=== PATIENT | female | born 1990 | race Caucasian/White ===

== ENCOUNTER 2021-10-05 20:57 | Emergency (ER) | payer OTHER ==
[~2021-10-05] VITALS: Ht 154.9 cm; Wt 68.0 kg
[2021-10-05 21:06] VITALS: BP_SYST 123; BP_SYST 131; BP_DIAS 72
--- NOTE | 2021-10-05 21:10 | NUR ---
TO LOBBY A/W BED AMBULATORY Addendum: 10/05/21 at 2157 by [facility] SWABS FOR MICHELINE AND INFLUENZA, SENT TO LAB
[2021-10-05] MEDS ORDERED: IBUPROFEN 600 MG TAB ONE (21:18)
--- NOTE | 2021-10-05 21:18 | NUR ---
MEDICATED PER PROTOCOL. MOTRIN 600MG PO GIVEN
--- NOTE | 2021-10-05 21:20 | NUR ---
Primitivo kerr in [facility] - 10/05/21 at 2144 by [facility] SWABS FOR MICHELINE AND INFLUENZA SENT TO LAB
[2021-10-05 21:50] LABS: APPEARANCE,URINE CLEAR (CLEAR); BILIRUBIN,URINE NEGATIVE (NEGATIVE); BLOOD, URINE NEGATIVE (NEGATIVE); COLOR,URINE YELLOW (YELLOW); LEUKOCYTE ESTERASE ,URINE TRACE (NEGATIVE); NITRITE, URINE NEGATIVE (NEGATIVE); PH,URINE 7.5 (5.0-9.0); UGLUCOSE NEGATIVE (NEGATIVE)
[2021-10-05 21:59] LABS: RBC,URINE 0-5 /HPF (0-5); WBC,URINE 0-5 /HPF (0-5)
[2021-10-05 22:00] LABS: OTHER CASTS, URINE None Seen /LPF (None Seen)
--- NOTE | 2021-10-05 23:02 | NUR ---
PT AMBULATED TO BED #4
--- NOTE | 2021-10-05 23:02 | NUR ---
Primitivo kerr in [facility] - 10/05/21 at 2302 by CRYSTAL PT TAKEN TO BED 4
--- NOTE | 2021-10-05 23:15 | NUR ---
RECEIVED IN BED 4 WITH C/O FEVER, BODYACHES, BACK PAIN SINCE MONDAY SHE TOOK TYLENOL AT 1600HOURS.
--- NOTE | 2021-10-05 23:16 | NUR ---
X-Ray at bedside.
[2021-10-05] MEDS ORDERED: LIDOCAINE MPF 1% 5 ML ONE (23:19)
[2021-10-05] MEDS ORDERED: cefTRIAXone 1,000 MG VIAL ONE (23:19)
[2021-10-05 23:31] LABS: BASOPHILS % (AUTO) 0.3 % (0.0-2.0); HEMATOCRIT 31.1 % (36-48); HEMOGLOBIN 10.4 g/dL (12.0-16.0); LYMPHOCYTES # (AUTO) 0.8 K/uL (2.5-16.5); LYMPHOCYTES % (AUTO) 7.4 % (20.5-51.1); MEAN CORPUSCULAR HEMOGLOBIN 28 pg (27-31); MEAN CORPUSCULAR HGB CONC 33 g/dL (33-37); MEAN CORPUSCULAR VOLUME 82.5 fL (80-94); MONOCYTES # (AUTO) 1.5 K/uL (0.8-1.0); MONOCYTES % (AUTO) 13.3 % (1.7-9.3); NEUTROPHILS # (AUTO) 8.7 K/uL (1.8-7.7); PLATELET COUNT (AUTO) 234 K/uL (140-450); RED BLOOD CELL COUNT(AUTO) 3.77 MIL/uL (4.20-5.40); RED CELL DISTRIBUTION WIDTH 16.2 % (11.6-13.7)
[2021-10-05] MEDS: ACETAMINOPHEN EXTRA STRENGTH 500 MG TAB PO ONE (23:38)
[2021-10-05] MEDS: cefTRIAXone 1,000 MG in LIDOCAINE MPF 1% 2.1 ML IM ONE (23:39)
[2021-10-05 23:48] LABS: ALBUMIN 3.5 g/dL (3.4-5.0); CARBON DIOXIDE 24.9 mmol/L (21-32); CREATININE 0.8 mg/dL (0.6-1.3); TOTAL BILIRUBIN 0.4 mg/dL (0.0-1.0)
[2021-10-05 23:50] LABS: POTASSIUM 2.9 mmol/L (3.5-5.1)
[2021-10-06] MEDS ORDERED: CIPR500T4 PO (00:54)
[2021-10-06] MEDS: POTASSIUM CHLORIDE 10 MEQ TABER PO ONE (00:55)
[2021-10-06 01:28] VITALS: BP 105/64
== END 2021-10-06 01:28 | disposition home or self-care (01) ==
LOC: MED 20:57
DX: R10.32 Left lower quadrant pain (principal); Z20.822 Contact with and (suspected) exposure to COVID-19; N39.0 Urinary tract infection, site not specified; E87.6 Hypokalemia; R07.89 Other chest pain; Z79.899 Other long term (current) drug therapy
CPT/HCPCS: 36415; 71045; 80053; 81001; 81025; 84484; 85025; 87086; 87426; 87804; 93005; 96372; 99285; J0696; J2001

== ENCOUNTER 2021-12-15 10:35 | Emergency (ER) | payer OTHER ==
[~2021-12-15] VITALS: Ht 152.4 cm; Wt 69.9 kg
[~2021-12-15 10:35] MED LIST: CIPR500T4 PO
[2021-12-15 10:36] VITALS: BP 125/87
[2021-12-15] MEDS ORDERED: MORPHINE SULFATE 4 MG/ML SYR IVP ONE (11:00)
[2021-12-15] MEDS ORDERED: ONDANSETRON 4 MG/2 ML VIAL IVP ONE (11:00)
[2021-12-15] MEDS ORDERED: NACL 0.9% 1,000 ML IV ONE (11:00)
--- NOTE | 2021-12-15 11:06 | NUR ---
Ultrasound at bedside.
--- NOTE | 2021-12-15 11:30 | NUR ---
31 y/o female bib self, c/o lower abd pain/pelvic pain that radiates to low back for 1 week, pt states pain increases with movement. pt states she was seen at [facility] and dx with ovarian cysts and given ibuprofen for pain management with no relief or improvement in condition. a&ox4, ambulates with steady gait. denies fever, chills, sob, sore throat, cough, n/v/d. pmh: ovarian cysts nka med: denies
[2021-12-15 11:44] LABS: BASOPHILS % (AUTO) 0.9 % (0.0-2.0); EOSINOPHILS % (AUTO) 0.6 % (0.0-4.0); HEMATOCRIT 30.7 % (36-48); LYMPHOCYTES # (AUTO) 1.8 K/uL (2.5-16.5); LYMPHOCYTES % (AUTO) 34.2 % (20.5-51.1); MEAN CORPUSCULAR HEMOGLOBIN 27 pg (27-31); MEAN CORPUSCULAR HGB CONC 33 g/dL (33-37); MEAN CORPUSCULAR VOLUME 83.9 fL (80-94); MONOCYTES # (AUTO) 0.5 K/uL (0.8-1.0); MONOCYTES % (AUTO) 10.4 % (1.7-9.3); NEUTROPHILS # (AUTO) 2.8 K/uL (1.8-7.7); NEUTROPHILS % (AUTO) 53.9 % (42.2-75.2); PLATELET COUNT (AUTO) 174 K/uL (140-450); RED BLOOD CELL COUNT(AUTO) 3.65 MIL/uL (4.20-5.40); RED CELL DISTRIBUTION WIDTH 15.2 % (11.6-13.7); WHITE BLOOD COUNT (AUTO) 5.1 K/uL (4.8-10.8)
[2021-12-15] MEDS ORDERED: CYCLOBENZAPRINE 10 MG TAB PO ONE (11:45)
[2021-12-15 11:58] LABS: ALBUMIN 3.4 g/dL (3.4-5.0); ANION GAP 8.3 (8-16); CARBON DIOXIDE 29.8 mmol/L (21-32); CREATININE 0.7 mg/dL (0.6-1.3); POTASSIUM 4.1 mmol/L (3.5-5.1); TOTAL BILIRUBIN 0.3 mg/dL (0.0-1.0)
[2021-12-15] MEDS ORDERED: IBUP-2213 PO (12:22)
[2021-12-15] MEDS ORDERED: LIDO1ADH47 TP (12:22)
[2021-12-15] MEDS ORDERED: CYCL-711 PO (12:22)
--- NOTE | 2021-12-15 13:07 | NUR ---
Patient discharged with v/s stable. Written and verbal after care instructions given and explained. Patient alert, oriented and verbalized understanding of instructions. Ambulatory with steady gait. All questions addressed prior to discharge. ID band removed. Patient advised to follow up with PMD. Rx of cyclobenzaprine, ibuprofen, lidocaine (Sent) given. Patient educated on indication of medication including possible reaction and side effects. Opportunity to ask questions provided and answered. copy of labs, imaging and work note given
[2021-12-15 13:08] VITALS: BP 125/87
== END 2021-12-15 13:05 | disposition home or self-care (01) ==
LOC: MED 10:35
DX: S39.012A Strain of muscle, fascia and tendon of lower back, initial encounter (principal); X58.XXXA Exposure to other specified factors, initial encounter; Y93.89 Activity, other specified; Y92.89 Other specified places as the place of occurrence of the external cause; Y99.8 Other external cause status
CPT/HCPCS: 36415; 76856; 80053; 85025; 93976; 96361; 96374; 96375; 99284; J2270; J2405; J7030; Q0092